=== PATIENT | male | born 1950 | race Caucasian/White ===

== ENCOUNTER 2024-05-05 06:09 | Emergency (ER) | payer MEDICARE ==
[~2024-05-05] VITALS: Ht 182.9 cm; Wt 65.9 kg
[2024-05-05 06:13] VITALS: TEMP 97.9
[2024-05-05] MEDS ORDERED: LIDO700A32 TD (07:32)
[2024-05-05 07:46] VITALS: BP 128/65; PULSE 60; RESP 16; O2SAT 98
== END 2024-05-05 12:46 | disposition home or self-care (01) ==
LOC: ER 06:59
DX: M54.50 Low back pain, unspecified (principal); Z79.899 Other long term (current) drug therapy; Z85.9 Personal history of malignant neoplasm, unspecified
CPT/HCPCS: 72100; 99283

== ENCOUNTER 2025-02-16 19:42 | Emergency (ER) | payer MEDICARE ==
[~2025-02-16] VITALS: Ht 182.9 cm; Wt 64.8 kg
[~2025-02-16 19:42] MED LIST: LIDO700A32 TD
--- NOTE | 2025-02-16 20:33 | Physician Documentation ---
History of Present Illness ~ Chief Complaint: Diarrhea Stated Complaint: DYSENTARY Time Seen by MD: 20:28 Mode of Arrival: POV, Ambulatory HPI Patient presents to the emergency room with chief complaint of diarrhea. He states that he felt like he was constipated yesterday but did not take any medications for this. Today he woke up having significant abdominal cramping began having diarrhea three or four p.m. this evening and it was had multiple watery bowel movements greater than 10 since that time. No fevers. No sick contacts. Mild nausea without vomiting. No new medications. No recent antibiotics. Medication Reconciliation Allergies: Coded Allergies: No Known Allergies (Unverified , 02/16/25) Scheduled Lidocaine (Lidoderm), 1 PATCH TD DAILY Past Medical History Past Medical History: *CANCER* Review of Systems ROS All review of systems negative except as per HPI Physical Exam Vital Signs: Temperature: 97.3, Source: Temporal, Heart Rate: 120, Respiratory Rate: 16, BP: 108/75, Pulse Oximetry: 95, Weight: 64.820 Oxygen Flow Rate: 0 Physical Exam General: Patient is awake, alert, oriented x4 in no acute distress Head: Normocephalic and atraumatic. Eyes: Conjunctival normal. EOMI. PERRL. ENT: Mucous membranes moist. Neck: Supple, trachea is midline. Chest: Clear to auscultation bilaterally without rales, rhonchi, or wheezes. There is no accessory muscle use or retractions. Cardiac: Tachycardic and regular without murmurs, gallops, or rubs. Abd: Soft, nondistended, nontender, with normoactive bowel sounds. Progress Results/Orders Results/Orders Orders - MARITO PARNELL MD Urinalysis, Cult If Indicated (02/16/25 20:06) Straight Cath For Urine Sample (02/16/25 20:06) Ct Abdomen Pelvis (02/16/25 20:45) Ketorolac Trometh 15mg/Ml Vial (Toradol (02/16/25 21:40) Acetaminophen 325mg Tablet (Tylenol Tabl (02/16/25 21:40) Dicyclomine Capsule (Bentyl Capsule) (02/16/25 21:40) Completed Orders - MARITO PARNELL MD Cbc/Diff (02/16/25 20:06) Lipase (02/16/25 20:06) CMP (02/16/25 20:06) Normal Saline 1000ml (Sodium Chloride 10 (02/16/25 20:30) Ct Abdomen Pelvis (02/16/25 20:45) Medications Received in ER Medications (Trade) Dose Ordered Sig/Riley Route PRN Reason Start Time Stop Time Status Last Admin Dose Admin Sodium Chloride 1,000 ml @ 1,000 mls/hr ONCE ONCE IV 02/16/25 20:30 02/16/25 21:29 DC 02/16/25 20:34 1,000 MLS/HR Vital Signs 02/16/25 02/16/25 02/16/25 19:45 20:04 21:02 Temp 97.3 Pulse 120 106 Resp 20 16 16 B/P (MAP) 108/75 130/75 (93) Pulse Ox 95 99 O2 Flow Rate 0 0 Laboratory Tests Test 02/16/25 20:28 White Blood Count 9.1 Red Blood Count 4.30 L Hemoglobin 14.0 Hematocrit 40.7 L Mean Corpuscular Volume 94.6 Mean Corpuscular Hemoglobin 32.6 H Mean Corpuscular Hemoglobin Concent 34.5 Red Cell Distribution Width 13.3 Platelet Count 268 Mean Platelet Volume 7.9 Neutrophils (%) (Auto) 77.9 H Lymphocytes (%) (Auto) 15.4 L Monocytes (%) (Auto) 6.5 Eosinophils (%) (Auto) 0 Basophils (%) (Auto) 0.2 Neutrophils # (Auto) 7.1 Lymphocytes # (Auto) 1.4 Monocytes # (Auto) 0.6 Eosinophils # (Auto) 0.0 Basophils # (Auto) 0.0 CBC Comment Sodium Level 141 Potassium Level 4.4 Chloride Level 104 Carbon Dioxide Level 26.1 Anion Gap 11 Blood Urea Nitrogen 21 H Creatinine 1.11 H Estimated GFR/1.73 m2 65 BUN/Creatinine Ratio 18.9 Glucose Level 117 H Calcium Level 9.4 Total Bilirubin 0.8 Aspartate Amino Transf (AST/SGOT) 37 Alanine Aminotransferase (ALT/SGPT) 7 L Alkaline Phosphatase 59 Total Protein 7.6 Albumin 4.4 Globulin 3.2 Albumin/Globulin Ratio 1.4 Lipase 12 L Chemistry Comments Medical Decision Making Findings Patient presents to the emergency room for evaluation of diarrhea. Differentials include but are not limited to diarrhea, flow round diarrhea, dehydration, electrolyte disturbances, acute kidney injury therefore emergent labs ordered. It was patient reports significant abdominal pain and given she was age that it was concern for possible intra-abdominal obstruction/infection causing symptoms therefore CT scan was performed which was reassuring. No significant elevation of white blood cell count and no history of antibiotics and he had not feel patient requires investigation of possible Clostridium difficile. Given imaging showing significant stool in colon and patient was reported history of constipation I believe he was suffering from flow around diarrhea and it was actually suffering from constipation. Given these findings I will not treat patient for diarrhea. I am hopeful that it was body we will clear the stools however I did have long discussion with patient and spouse at bedside regarding constipation and flow around diarrhea the need to stay regular. ER precautions discussed. Departure Disposition: HOME / SELF CARE / HOMELESS Impression: Primary Impression: Alternating constipation and diarrhea Condition: Stable Discharge Instructions: Diarrhea, Adult Additional Instructions: Your labs were reassuring today as well as your imaging although they did show a large amount of stool in your colon. Given your history of constipation and now experiencing diarrhea do believe your suffering from something called flow around diarrhea which he was actually constipation. Do not take anti diarrheal medications. Stay hydrated. I am hopeful this will work out on its own. Police investigate [id number] constipation remedies to stay regular. It was almost always an element of dehydration with constipation therefore you are to increase fluid intake. Referrals: NO PRIMARY CARE PROVIDER (PCP) Education Educated: Patient, Family Educated regarding: diagnosis, treatment, need for follow up Signature Scribe Signature: No scribe Attestation: The note accurately reflects work and decisions made by me.Marito Parnell MD 02/16/25 21:43 MARITO PARNELL MD February 16, 2025 20:33
[2025-02-16] MEDS: normal saline 1000ml 1,000 ML IV ONE (20:34)
[2025-02-16 20:42] LABS: BASOPHILS % (AUTO) 0.2 % (0-1); EOSINOPHILS % (AUTO) 0 % (0-6); HEMATOCRIT 40.7 % (42.0-52.0); LYMPHOCYTES # (AUTO) 1.4 X10'3 (1.1-4.8); LYMPHOCYTES % (AUTO) 15.4 % (21-51); MEAN CORPUSCULAR HEMOGLOBIN 32.6 PG (27.0-31.0); MEAN CORPUSCULAR HGB CONC 34.5 g/dL (33.0-36.5); MEAN CORPUSCULAR VOLUME 94.6 FL (78-98); MEAN PLATELET VOLUME 7.9 FL (7.4-10.4); MONOCYTES # (AUTO) 0.6 X10'3 (0-0.9); MONOCYTES % (AUTO) 6.5 % (2-12); NEUTROPHILS # (AUTO) 7.1 X10'3 (1.8-7.7); NEUTROPHILS % (AUTO) 77.9 % (42-75); PLATELET COUNT 268 X10'3 (140-440); RED CELL DISTRIBUTION WIDTH 13.3 % (11.5-14.5); WHITE BLOOD COUNT 9.1 X10'3 (4.5-11.0)
[2025-02-16 20:53] LABS: ALANINE AMINOTRANSFERASE 7 U/L (12-78); ALBUMIN 4.4 G/DL (3.4-5.0); ALBUMIN/GLOBULIN RATIO 1.4 (1.1-1.5); ALKALINE PHOSPHATASE 59 IU/L (46-116); ANION GAP 11 (8-16); ASPARTATE AMINO TRANSFERASE 37 U/L (10-37); BILIRUBIN,TOTAL 0.8 MG/DL (0.1-1.0); BLOOD UREA NITROGEN 21 MG/DL (7-18); BUN/CREATININE RATIO 18.9 (10.0-20.0); CALCIUM 9.4 MG/DL (8.5-10.1); CHLORIDE 104 MMOL/L (99-107); CREATININE 1.11 MG/DL (0.60-1.10); GLUCOSE 117 MG/DL (70-104); LIPASE 12 U/L (16-77); POTASSIUM 4.4 MMOL/L (3.5-5.1); SODIUM 141 MMOL/L (135-145); TOTAL CARBON DIOXIDE 26.1 MMOL/L (24-32); TOTAL PROTEIN 7.6 G/DL (6.4-8.2); eCRCL 53 ML/MIN; eGFR 65 ML/MIN
--- NOTE | 2025-02-16 20:58 | RADIOLOGY REPORT ---
Clinical History abd pain Comparison None Technique: Contiguous axial CT images of the abdomen and pelvis without intravenous contrast administ ration. Coronal and sagittal reformation was performed. All CT scans at this medical facility are performed using dose modulation techniques as appropriate t o a performed exam including the following: Automated exposure control was utilized; adjustment of th e mA and/or kV according to patient size; and use of iterative reconstruction technique. All CT studies are reported to the Dose Index Registry of the [employer]. Without Contrast Radiation Dose: CTDI (mGy): 8.79; DLP (mGy-cm): 422.69 ENDY FRIAS, [id number] Findings: The lack of intravenous contrast limits the evaluation of the solid organs. A nonobstructive 2 mm stone is in the right kidney. The right kidney also shows a partially exophyti c cyst. Both kidneys show otherwise normal size and shape. No hydronephrosis or ureteral stone is p resent. The liver, gallbladder, spleen, both adrenal glands, and pancreas show normal size and shape. A large amount of stool is in the rectum. The stomach, small bowel, and colon show otherwise normal caliber and wall thickness. The appendix is not well seen. No free air, free fluid, inflammatory changes, or lymphadenopathy is in the abdomen or pelvis. The abdominal aorta shows mild calcified atherosclerosis but normal course and diameter. Both lung bases are clear. The urinary bladder is intact. No acute fracture or bony destructive lesion is in the imaged portion of the skeleton. Impression: 1. A large amount of stool in the rectum suggests constipation. Please correlate clinically. 2. Nonobstructive right renal stone. This report was electronically signed by Kyle Padilla MD on 02/16/2025 8:56:02 PM.
[2025-02-16 21:02] VITALS: O2SAT 99
[2025-02-16] MEDS: dicyclomine 10 MG capsule PO ONE (21:49)
[2025-02-16 21:50] VITALS: RESP 14
[2025-02-16] MEDS: ketorolac trometh 15mg/ml vial 15 MG/ML ML IV ONE (21:50)
[2025-02-16] MEDS: acetaminophen 325mg tablet PO ONE (21:50)
[2025-02-16 22:30] VITALS: BP 113/73; PULSE 80; TEMP 97.6
[2025-02-18] MEDS ORDERED: SENN-36 PO (14:14)
[2025-02-18] MEDS ORDERED: POLY119P2 PO (14:14)
== END 2025-02-16 22:30 | disposition home or self-care (01) ==
LOC: ER 19:43
DX: R19.7 Diarrhea, unspecified (principal); K59.00 Constipation, unspecified
CPT/HCPCS: 36415; 74176; 80053; 83690; 85025; 96361; 96374; 99285; J1885; J7030

== ENCOUNTER → 2025-02-18 | Emergency (ER) | payer MEDICARE ==
[~2025-02-18] VITALS: Ht 182.9 cm; Wt 65.2 kg
[~2025-02-18] MED LIST changes: +POLY119P2 PO; +SENN-36 PO; +iohexol 300mg/ml 100ml inj. ONE
--- NOTE | 2025-02-18 07:53 | Physician Documentation ---
History of Present Illness ~ Chief Complaint: Constipation Stated Complaint: CONSTIPATION Time Seen by MD: 07:53 Source: patient, family () HPI 74-year-old male presenting with 3 days of constipation. Reports spasms around his anus and inability to pass any stool he was seen here in the ED 2 days ago for similar symptoms had noncontrast CTs and which showed large volume stool burden he was placed on MiraLax and has been doing enemas Medication Reconciliation Allergies: Coded Allergies: No Known Allergies (Unverified , 02/18/25) Scheduled Lidocaine (Lidoderm), 1 PATCH TD DAILY Polyethylene Glycol 3350 (Miralax), 17 GM PO DAILY Sennosides/Docusate Sodium (Senna-Docusate Sodium Tablet), 2 TAB PO Q12H Past Medical History Past Medical History: *CANCER* Review of Systems Constitutional: Denies: fever Respiratory: Denies: cough, shortness of breath Cardiovascular: Denies: chest pain Gastrointestinal: Denies: abdominal pain, nausea, vomiting Physical Exam Vital Signs: Temperature: 97.2, Heart Rate: 52, Respiratory Rate: 18, BP: 110/74, Pulse Oximetry: 98, Weight: 65.200 Oxygen Flow Rate: 0 Physical Exam Well-appearing no distress resting comfortably in bed at bedside Abdomen soft distended positive fullness nontender Rectal large stool burden Progress Progress Note Re-evaluated at time 2:22 p.m. he is feeling better he is now awake following his ketamine administration and disimpaction. I offered him admission to the hospital for a bowel cleanse however he does not want to stay and prefers to be in the privacy of his own home. He plans to take home as GoLYTELY and finish. Results/Orders Reviewed/noted all lab results: Yes Results/Orders Orders - AMBER DOAN MD Ct Abdomen Pelvis (02/18/25 09:59) Mineral Oil Enema (Mineral Oil Enema) (02/18/25 13:20) Completed Orders - AMBER DOAN MD Cbc/Diff (02/18/25 08:04) BMP (02/18/25 08:04) Ringers Solution, Lacted (Lactated Ringe (02/18/25 08:05) Ct Abdomen Pelvis (02/18/25 09:59) Iohexol 300mg/Ml 100ml Inj. (Omnipaque-3 (02/18/25 09:36) [id number]/Na Sulf-Bicarb/Kcl Gal (Golytely (02/18/25 10:45) Bisacodyl Suppository (Dulcolax Supposit (02/18/25 10:45) Ketamine 50mg/Ml 10ml Inj (Ketamine 50mg (02/18/25 12:10) Vital Signs 02/18/25 02/18/25 02/18/25 02/18/25 07:39 07:55 08:24 10:26 Temp 97.2 97.2 97.2 Pulse 52 97 73 Resp 18 18 18 B/P (MAP) 110/74 136/70 (92) 131/84 (100) Pulse Ox 98 98 97 O2 Flow Rate 0 0 0 02/18/25 02/18/25 12:01 12:59 Temp 97.2 Pulse 72 74 Resp 15 16 B/P (MAP) 138/73 (94) 112/61 (78) Pulse Ox 99 96 O2 Flow Rate 0 Laboratory Tests Test 02/18/25 08:18 White Blood Count 9.3 Red Blood Count 4.29 L Hemoglobin 13.9 L Hematocrit 41.1 L Mean Corpuscular Volume 95.7 Mean Corpuscular Hemoglobin 32.4 H Mean Corpuscular Hemoglobin Concent 33.9 Red Cell Distribution Width 13.4 Platelet Count 259 Mean Platelet Volume 7.7 Neutrophils (%) (Auto) 73.2 Lymphocytes (%) (Auto) 18.2 L Monocytes (%) (Auto) 8.2 Eosinophils (%) (Auto) 0.2 Basophils (%) (Auto) 0.2 Neutrophils # (Auto) 6.8 Lymphocytes # (Auto) 1.7 Monocytes # (Auto) 0.8 Eosinophils # (Auto) 0.0 Basophils # (Auto) 0.0 CBC Comment Sodium Level 143 Potassium Level 4.4 Chloride Level 104 Carbon Dioxide Level 27.4 Anion Gap 12 Blood Urea Nitrogen 15 Creatinine 0.93 Estimated GFR/1.73 m2 79 BUN/Creatinine Ratio 16.1 Glucose Level 100 Calcium Level 9.2 Albumin 4.1 Chemistry Comments Re-Evaluation Re-Evaluation : Progress Rectal exam performed, large volume of stool palpated in the rectum. Plan for disimpaction EKG/XRAY/CT/US/VASC/MRI CT : Impression I independently interpreted CT shows large volume stool burden no free air Medical Decision Making Diff Dx Rectal:Considerations: Include: Foreign body, Impaction, Prostatitis Departure Disposition: HOME / SELF CARE / HOMELESS Impression: Primary Impression: Constipation Qualified Codes: K59.01 - Slow transit constipation Additional Impression Text 74-year-old male no pertinent history presenting for 3 days of constipation. No leukocytosis, no fever. Abdomen benign. CT abdomen and pelvis with contrast showing large stool burden rectal exam with impaction. Patient was disimpacted and offered GoLYTELY clean out. He was offered admission however his preference was for discharge home to be in the privacy of his own bathroom which is a reasonable alternative. I advised him to return for fever or any worsening of his discomfort and placed on aggressive bowel regimen after he finishes his GoLYTELY Additional Instructions: Please finish your drink preparation tonight. Tomorrow you should start taking the medications I prescribed you indefinitely until you can be evaluated by your primary care physician. You should also attempt daily mineral oil enemas for the next few days until your completely resolved. If you have reoccurrence of your discomfort or if you develop a fever or increasing pain please return to the emergency department Referrals: NO PRIMARY CARE PROVIDER (PCP) Prescriptions Sennosides/Docusate Sodium (Senna-Docusate Sodium Tablet) 8.6 Mg-50 Mg Tablet 2 TAB PO Q12H for 5 Days, #20 TAB 0 Refills Prov: AMBER DOAN MD 02/18/25 Polyethylene Glycol 3350 (Miralax) 17 Gram/Dose Powder 17 GM PO DAILY for constipation, #255 GM 0 Refills dissolve in water Prov: AMBER DOAN MD 02/18/25 Signature Scribe Signature: [email or web address] Attestation: AMBER Tolliver MD February 18, 2025 07:53
[2025-02-18] MEDS: ringers solution, lacted 1,000 ML IV ONE (08:21)
[2025-02-18 08:29] LABS: BASOPHILS % (AUTO) 0.2 % (0-1); EOSINOPHILS % (AUTO) 0.2 % (0-6); HEMATOCRIT 41.1 % (42.0-52.0); HEMOGLOBIN 13.9 g/dl (14.0-17.9); LYMPHOCYTES # (AUTO) 1.7 X10'3 (1.1-4.8); LYMPHOCYTES % (AUTO) 18.2 % (21-51); MEAN CORPUSCULAR HEMOGLOBIN 32.4 PG (27.0-31.0); MEAN CORPUSCULAR HGB CONC 33.9 g/dL (33.0-36.5); MEAN CORPUSCULAR VOLUME 95.7 FL (78-98); MEAN PLATELET VOLUME 7.7 FL (7.4-10.4); MONOCYTES # (AUTO) 0.8 X10'3 (0-0.9); MONOCYTES % (AUTO) 8.2 % (2-12); NEUTROPHILS # (AUTO) 6.8 X10'3 (1.8-7.7); NEUTROPHILS % (AUTO) 73.2 % (42-75); PLATELET COUNT 259 X10'3 (140-440); RED BLOOD COUNT 4.29 X10'6 (4.70-6.10); RED CELL DISTRIBUTION WIDTH 13.4 % (11.5-14.5); WHITE BLOOD COUNT 9.3 X10'3 (4.5-11.0)
[2025-02-18 09:33] LABS: ALBUMIN 4.1 G/DL (3.4-5.0); ANION GAP 12 (8-16); BLOOD UREA NITROGEN 15 MG/DL (7-18); BUN/CREATININE RATIO 16.1 (10.0-20.0); CALCIUM 9.2 MG/DL (8.5-10.1); CHLORIDE 104 MMOL/L (99-107); CREATININE 0.93 MG/DL (0.60-1.10); GLUCOSE 100 MG/DL (70-104); POTASSIUM 4.4 MMOL/L (3.5-5.1); SODIUM 143 MMOL/L (135-145); TOTAL CARBON DIOXIDE 27.4 MMOL/L (24-32); eCRCL 63 ML/MIN; eGFR 79 ML/MIN
--- NOTE | 2025-02-18 10:33 | RADIOLOGY REPORT ---
Exam: CT CT ABDOMEN PELVIS W/ IV CONTRAST History: abdominal pain COMPARISON: CT CT ABDOMEN PELVIS on DOS: 02/16/25 Technique: Multidetector spiral CT of the abdomen and pelvis was performed from lung bases to pubic s ymphysis. Intravenous contrast was administered during this examination. Portal venous imaging was o btained. Axial, coronal and sagittal multiplanar reformats were performed by the technologist on a [employer] workstation. Radiation Dose : 1. Abdomen/Pelvis: CTDIvol 10.3 mGy, DLP 520 mGy*cm. Findings: Lung Bases: No acute or significant lung base finding. Normal heart size. No pleural or pericardial effusion. Liver: Hepatic steatosis. Few subcentimeter hypoattenuating lesions are present in the liver which ar e too small to characterize but likely represent cysts. Gallbladder and Biliary Tree: Unremarkable Spleen: Unremarkable Pancreas: The pancreas is normal in appearance without focal lesions or abnormal enhancement. Adrenal Glands: Unremarkable Kidneys: Right upper pole renal cyst measures 5.8 cm. No hydronephrosis. Few punctate nonobstructin g stones are present in the right kidney. Bladder: Unremarkable Bowel: The stomach is grossly normal in appearance. Large volume colonic stool. The appendix is not v isualized; however, no secondary findings of acute appendicitis identified. Ascites: Absent Lymphadenopathy: No mesenteric, retroperitoneal or periportal lymphadenopathy. Abdominal Wall and Mesentery: Unremarkable. Vasculature: The visualized abdominal aorta is normal in size and caliber. There is calcified atheros clerotic plaque involving the aorta and its branches. Abdominal and pelvic vessels demonstrate normal enhancement. Pelvic Organs: Unremarkable Musculoskeletal: No aggressive focal bony lesions, acute fractures or dislocation. IMPRESSION: Large volume colonic stool, unchanged. Radiation optimization: All CT scans at this facility use at least one of these dose optimization [facility] hniques: automated exposure control mA and/or kV adjustment per patient size (includes targeted exam s where dose is matched to clinical indication) or iterative reconstruction.
[2025-02-18] MEDS: PEG 3350/Na sulf,bicarb,Cl/KCl oral sol 4 liter bottle PO ONE (12:00)
[2025-02-18] MEDS: bisacodyl 10mg suppository rectal RC STA (12:00)
[2025-02-18] MEDS: ketamine 50 mg/ml 10ml vial IV ONE (12:58)
[2025-02-18 12:59] VITALS: BP 112/61; PULSE 74; RESP 16; TEMP 97.2; O2SAT 96
[2025-02-18] MEDS: mineral oil 133ml enema RC PRN (13:33)
== END | disposition home or self-care (01) ==
LOC: ER 07:36
DX: K59.00 Constipation, unspecified (principal)
CPT/HCPCS: 36415; 74177; 80048; 85025; 96361; 96374; 99285; J3490; J7030; J7120; Q9967